=== PATIENT | male | born 1985 | race Caucasian/White ===

== ENCOUNTER 2017-09-12 16:17 | Emergency (ER) | payer MEDICAID ==
[~2017-09-12] VITALS: Ht 172.7 cm; Wt 77.3 kg
[~2017-09-12 16:17] MED LIST: HYDR473S49 PO
[2017-09-12] MEDS ORDERED: PROPARACAINE/FLUORESCEIN ophthalmic drops 5ml bottle LEFTEYE ONE (17:15)
[2017-09-12] MEDS ORDERED: ERYT1OIN6 LEFTEYE (17:56)
[2017-09-12 18:08] VITALS: BP 120/89
== END 2017-09-12 18:09 | disposition home or self-care (01) ==
LOC: ER 16:17
DX: S05.02XA Injury of conjunctiva and corneal abrasion without foreign body, left eye, initial encounter (principal); Z86.19 Personal history of other infectious and parasitic diseases; F15.10 Other stimulant abuse, uncomplicated; Z79.899 Other long term (current) drug therapy; X58.XXXA Exposure to other specified factors, initial encounter; Y93.89 Activity, other specified; Y92.89 Other specified places as the place of occurrence of the external cause; Y99.8 Other external cause status
CPT/HCPCS: 99283

== ENCOUNTER 2022-08-15 02:10 | Inpatient (IN) | payer MEDICAID ==
[~2022-08-15] VITALS: Ht 172.7 cm; Wt 72.4 kg
[2022-08-15] VITALS (17 sets, daily range): BP systolic 110–136; BP diastolic 59–92
[2022-08-15] MEDS ORDERED: normal saline 1000ML IV soln IVB ONE ×2 (02:55→06:30)
[2022-08-15 03:47] LABS: ALANINE AMINOTRANSFERASE 57 U/L (12-78); ALBUMIN 3.1 G/DL (3.4-5.0); ALBUMIN/GLOBULIN RATIO 0.6 (1.1-1.5); ALKALINE PHOSPHATASE 104 IU/L (46-116); ANION GAP 10 (8-16); ASPARTATE AMINO TRANSFERASE 24 U/L (10-37); BILIRUBIN,TOTAL 2.4 MG/DL (0.1-1.0); BLOOD UREA NITROGEN 35 MG/DL (7-18); BUN/CREATININE RATIO 22.3 (10.0-20.0); CALCIUM 9.4 MG/DL (8.5-10.1); CHLORIDE 95 MMOL/L (99-107); CREATININE 1.57 MG/DL (0.60-1.10); GLUCOSE 119 MG/DL (70-104); LIPASE < 50 U/L (73-393); POTASSIUM 4.2 MMOL/L (3.5-5.1); SODIUM 130 MMOL/L (135-145); TOTAL CARBON DIOXIDE 25.5 MMOL/L (24-32); TOTAL PROTEIN 7.9 G/DL (6.4-8.2); eGFR 51 ML/MIN
[2022-08-15 03:49] LABS: BASOPHILS % (AUTO) 0.1 % (0-1); EOSINOPHILS % (AUTO) 0 % (0-6); HEMATOCRIT 48.5 % (42.0-52.0); HEMOGLOBIN 16.2 g/dl (14.0-17.9); LYMPHOCYTES % (AUTO) 3.9 % (21-51); MEAN CORPUSCULAR HEMOGLOBIN 28.3 PG (27.0-31.0); MEAN CORPUSCULAR HGB CONC 33.3 g/dL (33.0-36.5); MEAN CORPUSCULAR VOLUME 84.9 FL (78-98); MEAN PLATELET VOLUME 8.4 FL (7.4-10.4); MONOCYTES # (AUTO) 2.1 X10'3 (0-0.9); MONOCYTES % (AUTO) 8.3 % (2-12); NEUTROPHILS # (AUTO) 22.6 X10'3 (1.8-7.7); NEUTROPHILS % (AUTO) 87.7 % (42-75); PLATELET COUNT 328 X10'3 (140-440); RED BLOOD COUNT 5.72 X10'6 (4.70-6.10); RED CELL DISTRIBUTION WIDTH 13.7 % (11.5-14.5)
[2022-08-15 03:52] LABS: WHITE BLOOD COUNT 25.7 X10'3 (4.5-11.0)
[2022-08-15] MEDS: OLANZapine 2.5MG tablet PO SCH ×2 (04:20→04:21)
[2022-08-15 04:27] LABS: PLATELET ESTIMATE NORMAL; TOTAL CELLS COUNTED 100; TOXIC VACUOLATION FEW
[2022-08-15 04:28] LABS: TOXIC GRANULATION 1+
[2022-08-15] MEDS ORDERED: iohexol 300mg/ml 100ml inj. ONE (04:43)
[2022-08-15] MEDS ORDERED: acetaminophen 1,000mg/100ml IV 100 ML IV ONE ×2 (05:30→16:33)
[2022-08-15] MEDS ORDERED: morphine 4 MG/ML inj SYRINge IV ONE (05:30)
[2022-08-15] MEDS ORDERED: piperacillin/tazo 3.375gm/50ml 50 ML IV ONE (05:55)
[2022-08-15 08:11] LABS: CLARITY,URINE SLIGHTLY CLOUDY (Clear); COLOR,URINE YELLOW (Yellow); GLUCOSE, URINE NEGATIVE (Neg); KETONES,URINE TRACE mg/dl (Neg); LEUKOCYTE ESTERASE ,URINE NEGATIVE (Neg); NITRITES, URINE NEGATIVE (Neg); OCCULT BLOOD,URINE NEGATIVE (Neg); PROTEIN,URINE TRACE mg/dl (Neg)
[2022-08-15 08:17] LABS: UA COLLECTION TYPE URINAL
[2022-08-15] MEDS ORDERED: ondansetron/PF 4mg/2ml inj IV PRN ×2 (08:20→15:45)
[2022-08-15] MEDS ORDERED: potassium Cl 40MEQ/1/2NS 520ml 520 ML IV PRN (08:20)
[2022-08-15] MEDS ORDERED: potassium Cl 20 mEq SR tablet PO PRN (08:20)
[2022-08-15] MEDS ORDERED: morphine 2 MG/ML inj. syringe IV PRN ×2 (08:20→15:45)
[2022-08-15] MEDS ORDERED: magnesium 2GM in 50ml NS 50 ML IV PRN (08:20)
[2022-08-15] MEDS ORDERED: magnesium Cl slow-release 64mg tablet PO PRN (08:20)
[2022-08-15] MEDS ORDERED: mag hydrox/Alum hydrox/simeth 30ml oral suspension PO PRN (08:20)
[2022-08-15] MEDS ORDERED: acetaminophen 325mg tablet PO PRN (08:20)
[2022-08-15] MEDS ORDERED: magnesium 4gm in 100ml NS 100 ML IV PRN (08:20)
[2022-08-15 08:24] LABS: SQUAMOUS EPITHELIAL CELL,UR FEW /LPF (FEW); WBC CLUMPS,URINE FEW /HPF (NEGATIVE)
[2022-08-15 08:25] LABS: MUCUS STRANDS FEW /LPF (Neg)
[2022-08-15 08:26] LABS: BACTERIA,URINE 1+ /HPF (Neg); RBC,URINE 0-2 /HPF (0-2); WBC,URINE 0-4 /HPF (0-4)
[2022-08-15] MEDS ORDERED: NO HOME MEDS (08:49)
[2022-08-15] MEDS: normal saline 1000ml 1,000 ML IV SCH ×2 (08:51→19:27)
[2022-08-15 09:02] LABS: MAGNESIUM 2.1 MG/DL (1.5-2.4)
[2022-08-15] MEDS: morphine 2 MG/ML inj. syringe IV PRN (12:38)
--- NOTE | 2022-08-15 14:22 | NUR ---
Pt wiped self done for surgery with orange wipes, changed into clean gown and socks, linen changed.
[2022-08-15] MEDS ORDERED: BUPIVAcaine/PF 2.5 mg/ml (0.25%) 30ml vial ONE (15:27)
[2022-08-15] MEDS ORDERED: LIDOcaine 1% 30ml preserv. free vial ONE (15:27)
[2022-08-15] MEDS ORDERED: sevoflurane 250ml liquid IH ONE (15:43)
[2022-08-15] MEDS ORDERED: LIDOcaine 2% (20mg/ml) 5ml vial ONE (15:43)
[2022-08-15] MEDS ORDERED: morphine 4 MG/ML inj SYRINge IV PRN (15:45)
[2022-08-15] MEDS ORDERED: proCHLORperazine 10 MG/2 ml inj IV PRN (15:45)
[2022-08-15] MEDS ORDERED: ringers solution, lacted 1,000 ML IV SCH (15:45)
[2022-08-15] MEDS ORDERED: meperidine/PF 25mg/ml syringe IV PRN ×3 (15:45)
[2022-08-15] MEDS ORDERED: midazolam 1 mg/ML 2ml injection ONE (15:48)
[2022-08-15] MEDS ORDERED: fentaNYL /PF 50mcg/ml 5ml ampule ONE (15:48)
[2022-08-15] MEDS ORDERED: rocuronium 10mg/ml inj IV ONE ×2 (16:33)
[2022-08-15] MEDS ORDERED: propofol inj 20 ML IV ONE (16:33)
[2022-08-15] MEDS ORDERED: neostigmine methylsulfate 1 MG/ML 10ml vial ONE (17:17)
[2022-08-15] MEDS ORDERED: glycopyrrolate 0.2mg/ml inj ONE (17:18)
[2022-08-15] MEDS ORDERED: normal saline 1000ml 1,000 ML IV SCH (17:25)
[2022-08-15] MEDS ORDERED: naloxone 0.4 mg/ml inj IV PRN (17:25)
--- NOTE | 2022-08-15 17:37 | NUR ---
Received from OR via HOSPITAL BED TO RR 6, accompanied by Anesthesiologist DR GUERRERO and report given by Anesthesiolgist. PT PRESENTS WITH PIV 18G LEFT ARM, ABD DRESSING WITH DRAIN, CDI, LR RUNNING AT 100MLS/HR, SPO2 100% MASL 10L, VSS. Addendum: 08/15/22 at 1803 by Raina Loza RN RN Amended: Links added.
[2022-08-15] MEDS: HYDROmorph/NS 0.2 mg/ml PCA 100 ML IV SCH ×4 (18:10→23:00)
--- NOTE | 2022-08-15 18:40 | NUR ---
PT ASKING FOR HIS BELONGINGS. 3 CLEAR PT BAGS GIVEN TO PT. PT GOT INTO THE BAG WITH HIS PANTS PULLED OUT A SMALL BAG WITH WHITE POWDER. SECURITY CALLED TO SEARCH PT BELONGINGS. Addendum: 08/15/22 at 1843 by Raina Loza RN, RN Amended: Links added.
--- NOTE | 2022-08-15 18:42 | NUR ---
SECURITY AT BEDSIDE [place]. Addendum: 08/15/22 at 1843 by Raina Loza RN RN Amended: Links added.
--- NOTE | 2022-08-15 19:07 | NUR ---
Report called to receiving nurse WENDY MIRANDA. Transferred via HOSPITAL BED TO ROOM 347B. PT ON TELE, BED IN LOW LOCKED POSITION WITH CALL LIGHT IN REACH, CHART TAKEN TO NURSES STATION. PT HAS 3 Belongings BAGS TAKEN TO ROOM 347A. Special Issues communicated to receiving nurse. Addendum: 08/15/22 at 1919 by Raina Loza RN, RN Amended: Links added.
[2022-08-15] MEDS: K and/or MAG REPLACEMENT MC SCH (19:20)
[2022-08-15] MEDS: heparin, porcine 5000 units/ml vial SQ SCH (19:27)
[2022-08-15] MEDS: piperacillin/tazo 4.5gm/100ml 100 ML IV SCH (19:34)
[2022-08-16 00:19] VITALS: BP 107/69
[2022-08-16] MEDS: piperacillin/tazo 4.5gm/100ml 100 ML IV SCH ×4 (00:26→23:32)
[2022-08-16] MEDS: HYDROmorph/NS 0.2 mg/ml PCA 100 ML IV SCH ×9 (01:00→17:00)
[2022-08-16 02:00] VITALS: BP 113/71
[2022-08-16] MEDS: normal saline 1000ml 1,000 ML IV SCH ×3 (04:08→23:39)
[2022-08-16 05:30] VITALS: BP 105/86
--- NOTE | 2022-08-16 06:20 | NUR ---
Patient in room [facility]. I have received report from RUTH Sands and had the opportunity to ask questions and assume patient care.
[2022-08-16 06:52] LABS: BASOPHILS % (AUTO) 0.2 % (0-1); EOSINOPHILS # (AUTO) 0.1 X10'3 (0-0.9); EOSINOPHILS % (AUTO) 0.3 % (0-6); HEMATOCRIT 41.2 % (42.0-52.0); HEMOGLOBIN 13.7 g/dl (14.0-17.9); LYMPHOCYTES % (AUTO) 6.6 % (21-51); MEAN CORPUSCULAR HEMOGLOBIN 28.4 PG (27.0-31.0); MEAN CORPUSCULAR HGB CONC 33.2 g/dL (33.0-36.5); MEAN CORPUSCULAR VOLUME 85.4 FL (78-98); MEAN PLATELET VOLUME 8.2 FL (7.4-10.4); MONOCYTES # (AUTO) 1.2 X10'3 (0-0.9); MONOCYTES % (AUTO) 7.9 % (2-12); NEUTROPHILS # (AUTO) 13.3 X10'3 (1.8-7.7); PLATELET COUNT 259 X10'3 (140-440); RED BLOOD COUNT 4.83 X10'6 (4.70-6.10); RED CELL DISTRIBUTION WIDTH 13.6 % (11.5-14.5); WHITE BLOOD COUNT 15.7 X10'3 (4.5-11.0)
[2022-08-16 07:12] LABS: ANION GAP 9 (8-16); BLOOD UREA NITROGEN 12 MG/DL (7-18); BUN/CREATININE RATIO 13.6 (10.0-20.0); CALCIUM 8.1 MG/DL (8.5-10.1); CHLORIDE 102 MMOL/L (99-107); CREATININE 0.88 MG/DL (0.60-1.10); GLUCOSE 90 MG/DL (70-104); MAGNESIUM 1.8 MG/DL (1.5-2.4); POTASSIUM 3.9 MMOL/L (3.5-5.1); SODIUM 135 MMOL/L (135-145); TOTAL CARBON DIOXIDE 23.7 MMOL/L (24-32); eGFR > 90 ML/MIN
[2022-08-16] MEDS: K and/or MAG REPLACEMENT MC SCH ×2 (08:00→19:40)
[2022-08-16] MEDS: heparin, porcine 5000 units/ml vial SQ SCH ×2 (08:26→19:37)
[2022-08-16 10:00] VITALS: BP 102/66
[2022-08-16] MEDS ORDERED: HYDROcodone/acetaminophen 5mg/325mg tablet PO PRN (17:15)
[2022-08-16] MEDS: HYDROcodone/acetaminophen 10/325mg tab PO PRN ×2 (17:31→21:30)
[2022-08-16] MEDS ORDERED: PCA WASTE DOCUMENTATION 1 MG ML MC ONE (17:50)
[2022-08-16 18:00] VITALS: BP 110/66
--- NOTE | 2022-08-16 18:50 | NUR ---
Problems reprioritized. Patient report given, questions answered & plan of care reviewed with RUTH Van.
[2022-08-16] MEDS: morphine 2 MG/ML inj. syringe IV PRN ×2 (19:35→23:39)
[2022-08-16] MEDS: traZODone 50mg tablet PO SCH (19:37)
[2022-08-16 22:00] VITALS: BP 127/63
[2022-08-17] MEDS: HYDROcodone/acetaminophen 10/325mg tab PO PRN ×5 (01:32→20:19)
[2022-08-17] MEDS: morphine 2 MG/ML inj. syringe IV PRN (04:56)
[2022-08-17 05:00] VITALS: BP 139/83
--- NOTE | 2022-08-17 06:10 | NUR ---
Patient in room [facility]. I have received report from RUTH Van and had the opportunity to ask questions and assume patient care.
[2022-08-17 06:19] LABS: BASOPHILS % (AUTO) 0.2 % (0-1); EOSINOPHILS # (AUTO) 0.2 X10'3 (0-0.9); EOSINOPHILS % (AUTO) 1.4 % (0-6); HEMATOCRIT 36.8 % (42.0-52.0); HEMOGLOBIN 12.4 g/dl (14.0-17.9); LYMPHOCYTES # (AUTO) 0.8 X10'3 (1.1-4.8); LYMPHOCYTES % (AUTO) 7.7 % (21-51); MEAN CORPUSCULAR HEMOGLOBIN 28.6 PG (27.0-31.0); MEAN CORPUSCULAR HGB CONC 33.6 g/dL (33.0-36.5); MEAN PLATELET VOLUME 8.2 FL (7.4-10.4); MONOCYTES # (AUTO) 1.3 X10'3 (0-0.9); MONOCYTES % (AUTO) 11.5 % (2-12); NEUTROPHILS # (AUTO) 8.7 X10'3 (1.8-7.7); NEUTROPHILS % (AUTO) 79.2 % (42-75); PLATELET COUNT 284 X10'3 (140-440); RED BLOOD COUNT 4.33 X10'6 (4.70-6.10); RED CELL DISTRIBUTION WIDTH 13.1 % (11.5-14.5); WHITE BLOOD COUNT 10.9 X10'3 (4.5-11.0)
[2022-08-17 06:23] LABS: ALBUMIN 1.9 G/DL (3.4-5.0); ANION GAP 10 (8-16); BLOOD UREA NITROGEN 8 MG/DL (7-18); BUN/CREATININE RATIO 10.5 (10.0-20.0); CALCIUM 8.4 MG/DL (8.5-10.1); CHLORIDE 104 MMOL/L (99-107); CREATININE 0.76 MG/DL (0.60-1.10); GLUCOSE 96 MG/DL (70-104); MAGNESIUM 1.9 MG/DL (1.5-2.4); POTASSIUM 3.4 MMOL/L (3.5-5.1); SODIUM 138 MMOL/L (135-145); TOTAL CARBON DIOXIDE 24.5 MMOL/L (24-32); eGFR > 90 ML/MIN
[2022-08-17] MEDS: piperacillin/tazo 4.5gm/100ml 100 ML IV SCH ×2 (07:57→16:23)
[2022-08-17] MEDS: normal saline 1000ml 1,000 ML IV SCH (07:58)
[2022-08-17] MEDS: heparin, porcine 5000 units/ml vial SQ SCH ×2 (07:59→21:41)
[2022-08-17] MEDS: K and/or MAG REPLACEMENT MC SCH ×2 (08:28→20:00)
[2022-08-17 10:00] VITALS: BP 105/62
[2022-08-17] MEDS ORDERED: HYDROmorphone inj. 0.5 MG/0.5 ML DISP.SYRIN IV PRN (10:00)
[2022-08-17] MEDS: potassium Cl 20 mEq SR tablet PO PRN ×3 (10:22→18:05)
[2022-08-17] MEDS: HYDROmorphone 1 mg/ml syringe IV PRN ×4 (10:23→22:15)
[2022-08-17 18:00] VITALS: BP 111/63
[2022-08-17] MEDS: traZODone 50mg tablet PO SCH (21:41)
[2022-08-17 23:00] VITALS: BP 111/68
[2022-08-18] MEDS: piperacillin/tazo 4.5gm/100ml 100 ML IV SCH ×2 (00:05→08:00)
[2022-08-18] MEDS: HYDROcodone/acetaminophen 10/325mg tab PO PRN (02:43)
[2022-08-18] MEDS: HYDROmorphone 1 mg/ml syringe IV PRN (05:53)
[2022-08-18 06:00] VITALS: BP 125/66
--- NOTE | 2022-08-18 06:10 | NUR ---
Problems reprioritized. Patient report given, questions answered & plan of care reviewed with RUTH Moses.
[2022-08-18 07:07] LABS: BASOPHILS % (AUTO) 0.4 % (0-1); EOSINOPHILS # (AUTO) 0.2 X10'3 (0-0.9); EOSINOPHILS % (AUTO) 2.5 % (0-6); HEMOGLOBIN 12.3 g/dl (14.0-17.9); LYMPHOCYTES # (AUTO) 1.2 X10'3 (1.1-4.8); MEAN CORPUSCULAR HEMOGLOBIN 28.7 PG (27.0-31.0); MEAN CORPUSCULAR HGB CONC 34.1 g/dL (33.0-36.5); MEAN CORPUSCULAR VOLUME 84.3 FL (78-98); MEAN PLATELET VOLUME 8.2 FL (7.4-10.4); MONOCYTES # (AUTO) 1.2 X10'3 (0-0.9); MONOCYTES % (AUTO) 12.7 % (2-12); NEUTROPHILS # (AUTO) 7.1 X10'3 (1.8-7.7); NEUTROPHILS % (AUTO) 72.4 % (42-75); PLATELET COUNT 301 X10'3 (140-440); RED BLOOD COUNT 4.27 X10'6 (4.70-6.10); RED CELL DISTRIBUTION WIDTH 13.1 % (11.5-14.5); WHITE BLOOD COUNT 9.8 X10'3 (4.5-11.0)
[2022-08-18 07:08] LABS: ALBUMIN 1.9 G/DL (3.4-5.0); ANION GAP 10 (8-16); BLOOD UREA NITROGEN 10 MG/DL (7-18); CALCIUM 8.5 MG/DL (8.5-10.1); CHLORIDE 103 MMOL/L (99-107); CREATININE 0.83 MG/DL (0.60-1.10); GLUCOSE 94 MG/DL (70-104); MAGNESIUM 1.8 MG/DL (1.5-2.4); POTASSIUM 3.7 MMOL/L (3.5-5.1); SODIUM 136 MMOL/L (135-145); TOTAL CARBON DIOXIDE 23.2 MMOL/L (24-32); eGFR > 90 ML/MIN
--- NOTE | 2022-08-18 07:32 | NUR ---
Patient in room [facility] 347A. I have received report from RUTH RUGGIERO and had the opportunity to ask questions and assume patient care.
[2022-08-18] MEDS ORDERED: amox tr/potassium clavulanate 875/125mg TAB PO SCH (09:40)
[2022-08-18] MEDS ORDERED: HYDR-3972 PO (09:40)
[2022-08-18] MEDS ORDERED: AMOX-117 PO (09:40)
[2022-08-18] MEDS: heparin, porcine 5000 units/ml vial SQ SCH (09:45)
--- NOTE | 2022-08-18 14:40 | NUR ---
PATIENT STABLE AND APPROPRIATE FOR DISCHARGE, IV REMOVED, TELE REMOVED, EDUCATION GIVEN, MED E-SCRIPTED AND A SCRIPT FOR NORCO GIVEN TO PATIENT, ALL BELONGINGS SENT WITH PATIENT, PATIENT WALKED SELF DOWN STAIRS TO WAIT FOR RIDE
== END 2022-08-18 10:40 | disposition home or self-care (01) | DRG 710 ==
LOC: ER 02:11 → ED HOLD 08:20 → PACU 15:35 → SUR 3N 19:00
PROVIDERS: ADMIT Family Medicine; ATTEND Family Medicine
PROC: 8E0W4CZ Robotic Assisted Procedure of Trunk Region, Percutaneous Endoscopic Approach (ICD-10-PCS; 2022-08-15)
PROC: 0WQF4ZZ Repair Abdominal Wall, Percutaneous Endoscopic Approach (ICD-10-PCS; 2022-08-15)
PROC: BW211ZZ Computerized Tomography (CT Scan) of Abdomen and Pelvis using Low Osmolar Contrast (ICD-10-PCS; 2022-08-15)
PROC: 0DTJ4ZZ Resection of Appendix, Percutaneous Endoscopic Approach (ICD-10-PCS; principal; 2022-08-15 15:43)
DX: A41.9 Sepsis, unspecified organism (principal); K35.20 Acute appendicitis with generalized peritonitis, without abscess; K43.6 Other and unspecified ventral hernia with obstruction, without gangrene; F17.210 Nicotine dependence, cigarettes, uncomplicated; G40.909 Epilepsy, unspecified, not intractable, without status epilepticus; B19.20 Unspecified viral hepatitis C without hepatic coma; F11.90 Opioid use, unspecified, uncomplicated; F15.90 Other stimulant use, unspecified, uncomplicated
CPT/HCPCS: 36415; 74177; 80048; 80053; 81001; 83690; 83735; 85007; 85025; 87040; 96374; 99285; A4215; A4340; A4618; A5200; A6212; A6258; A6449; G0378; J0131; J1170; J1644; J2175; J2250; J2270; J2543; J2704; J2710; J3010; J3490; J7030; J7040; J7120; Q9967

== ENCOUNTER 2023-08-11 08:08 | Emergency (ER) | payer MEDICAID ==
[~2023-08-11] VITALS: Ht 172.7 cm; Wt 90.2 kg
[2023-08-11 08:16] VITALS: BP 129/80; PULSE 92; RESP 18; TEMP 97.8; O2SAT 98
== END 2023-08-11 10:05 | disposition home or self-care (01) ==
LOC: ER 08:08
DX: F15.10 Other stimulant abuse, uncomplicated (principal); F19.20 Other psychoactive substance dependence, uncomplicated; F11.90 Opioid use, unspecified, uncomplicated
CPT/HCPCS: 99281

== ENCOUNTER 2025-01-17 18:05 | Emergency (ER) | payer MEDICAID ==
[~2025-01-17] VITALS: Ht 172.7 cm; Wt 81.8 kg
[2025-01-17 18:52] LABS: MEAN PLATELET VOLUME 8.6 FL (7.4-10.4); RED CELL DISTRIBUTION WIDTH 13.8 % (11.5-14.5)
[2025-01-17 19:05] LABS: CREATININE 0.94 MG/DL (0.60-1.10); TOTAL CARBON DIOXIDE 30.1 MMOL/L (24-32); eCRCL 103 ML/MIN; eGFR 90 ML/MIN
--- NOTE | 2025-01-17 19:23 | Physician Documentation ---
History of Present Illness ~ Chief Complaint: Abscess Stated Complaint: ABSCESS Time Seen by MD: 22:58 Primary Medical Doctor: Sharda Ulloa HPI MSE: This is a 39-year-old male who presents with concern for an abscess to his right buttock for the past two days, patient reports that the with a fever. HPI: The patient tells me that for the past 2 days he noticed some pain and swelling to the right buttocks region. Initially he thought it was just a heat rash. He has become more swollen and painful. Today he felt like he was having a fever. No drainage from the wound. He denies any history of cellulitis or abscess. No history of diabetes. No IV drug use. No allergies to antibiotics. Tetanus Within 5 Years: Yes Medication Reconciliation Allergies: Coded Allergies: No Known Allergies (Unverified , 01/17/25) Scheduled Sulfamethoxazole/Trimethoprim (Bactrim Ds Tablet), 1 TAB PO Q12H Past Medical History Past Medical History: Seizures, Hepatitis C Past Surgical History: no surgical history Patient History: Patient reports no known family medical history. Alcohol Use: None Drug Use: methamphetamine, heroin Review of Systems ROS As stated above in the HPI, otherwise all systems are reviewed and negative. Constitutional: Reports: fever Integumentary: Reports: rash Physical Exam Vital Signs: Temperature: 97.8, Source: Temporal, Heart Rate: 82, Respiratory Rate: 18, BP: 116/79, Pulse Oximetry: 98, Weight: 81.820 Physical Exam General: This is a tired-appearing young man lying quietly in bed Heart: Regular rate, normal-appearing peripheral perfusion Lungs: normal work of breathing, normal oxygen saturation on room air : On the right buttocks, there is an area of induration, swelling, redness and warmth, that appears consistent with an abscess with surrounding cellulitis. It does not track to the gluteal cleft or the anal region Neuro: Alert and oriented Psychiatric: Flattened affect and appears tired, but is cooperative with exam Procedures I & D Procedure : Site: Right buttocks Anesthesia: Lidocaine w/ Epi Blade Size: 11 Prep/Supplies: betadine prep Incision: mass incised, pus drained Tolerated Procedure Well?: yes, no complications Procedure Note The abscess was identified using bedside ultrasound. The abscess was lanced and purulent material was removed and sent for culture. It was irrigated and packing was placed. He tolerated this well, no significant bleeding or complications. Progress Results/Orders Results/Orders Orders - ALIX MOON MD Culture Body Fluid Order (01/17/25 23:04) Cult (Aer) Routine C&S+Gram St (01/18/25 00:02) Cult Anaerobic (01/18/25 00:02) Completed Orders - ALIX MOON MD Lidocaine 1% W/Epi 1:100,000 (Xylocaine (01/17/25 23:05) Sulfamethox/Trimetho. Ds Tab (Septra Ds (01/17/25 23:05) Medications Received in ER Medications (Trade) Dose Ordered Sig/Jermaine Route PRN Reason Start Time Stop Time Status Last Admin Dose Admin ( DS tab) 1 tab ONCE ONCE PO 01/17/25 23:05 01/17/25 23:07 DC 01/18/25 00:05 1 TAB Vital Signs 01/17/25 01/17/25 01/17/25 01/17/25 18:15 20:44 22:07 22:09 Temp 97.8 100.4 99.2 Pulse 82 78 72 Resp 18 14 17 B/P (MAP) 116/79 109/71 (84) 106/62 (77) Pulse Ox 98 97 96 O2 Flow Rate 0 0 Laboratory Tests Test 01/17/25 18:27 White Blood Count 12.1 H Red Blood Count 4.78 Hemoglobin 13.7 L Hematocrit 40.8 L Mean Corpuscular Volume 85.5 Mean Corpuscular Hemoglobin 28.6 Mean Corpuscular Hemoglobin Concent 33.4 Red Cell Distribution Width 13.8 Platelet Count 243 Mean Platelet Volume 8.6 Neutrophils (%) (Auto) 70.2 Lymphocytes (%) (Auto) 19.3 L Monocytes (%) (Auto) 8.8 Eosinophils (%) (Auto) 1.0 Basophils (%) (Auto) 0.7 Neutrophils # (Auto) 8.5 H Lymphocytes # (Auto) 2.3 Monocytes # (Auto) 1.1 H Eosinophils # (Auto) 0.1 Basophils # (Auto) 0.1 CBC Comment Sodium Level 142 Potassium Level 4.8 Chloride Level 105 Carbon Dioxide Level 30.1 Anion Gap 7 L Blood Urea Nitrogen 12 Creatinine 0.94 Estimated GFR/1.73 m2 90 BUN/Creatinine Ratio 12.8 Glucose Level 96 Calcium Level 8.6 Total Bilirubin 0.7 Aspartate Amino Transf (AST/SGOT) 70 H Alanine Aminotransferase (ALT/SGPT) 162 H Alkaline Phosphatase 76 Total Protein 7.8 Albumin 3.6 Globulin 4.2 Albumin/Globulin Ratio 0.9 L Chemistry Comments Medical Decision Making Findings MSE performed in triage and patient returned to ED lobby by nursing staff to await available ED room Differential Dx:Considerations: Include: Abscess, Bacteremia, Cellulitis Additional Comment The patient presents with an abscess on his buttocks, which appears to be loca lized to the buttocks in his not a perianal abscess. He does report having a fever but is afebrile here. Labs show a very mild leukocytosis but no other acute abnormality. An I&D was performed successfully and packing was placed. He will be discharged with home care instructions, antibiotics, and return precautions. Departure Time of Disposition: 23:10 Disposition: 01 HOME / SELF CARE / HOMELESS Impression: Primary Impression: Abscess Additional Impression: Cellulitis Condition: Improved Discharge Instructions: Incision and Drainage, Abscess, Care After Referrals: NO PRIMARY CARE PROVIDER (PCP) Prescriptions Sulfamethoxazole/Trimethoprim (Bactrim Ds Tablet) 800 Mg-160 Mg Tablet 1 TAB PO Q12H for 10 Days, #20 TAB Prov: ALIX MOON MD 01/17/25 Education Educated: Patient Educated regarding: diagnosis, treatment, need for follow up Signature Scribe Signature: vasu Attestation: BROOKE Barahona Jan 17, 2025 19:23 ALIX MOON MD Jan 17, 2025 23:10
[2025-01-17 22:07] VITALS: BP 106/62; PULSE 72; RESP 17; TEMP 99.2; O2SAT 96
[2025-01-17] MEDS ORDERED: SULF1TAB49 PO (23:10)
[2025-01-18] MEDS: LIDOcaine 1% W/epiNEPHrine 1:100,000 20ml vial SQ ONE (00:05)
[2025-01-18] MEDS: sulfamethoxazole/trimethoprim DS (800/160mg) tablet PO ONE (00:05)
[2025-01-18] MEDS ORDERED: SULF1TAB49 PO (13:58)
== END 2025-01-18 00:08 | disposition home or self-care (01) ==
LOC: ER 18:06
DX: L02.31 Cutaneous abscess of buttock (principal); L03.317 Cellulitis of buttock; F11.90 Opioid use, unspecified, uncomplicated; F15.90 Other stimulant use, unspecified, uncomplicated
CPT/HCPCS: 10060; 36415; 80053; 85025; 87070; 87075; 99284; A6258